=== PATIENT | male | born 1985 | race Two or more races ===

== ENCOUNTER 2017-08-19 00:23 | Emergency (ER) | payer OTHER ==
[~2017-08-19] VITALS: Ht 177.8 cm; Wt 69.4 kg
[2017-08-19] MEDS ORDERED: TOBREX5 ML OP (02:07)
[2017-08-19] MEDS ORDERED: LORATADINE10 MG PO (02:07)
[2017-08-19] MEDS ORDERED: FLONASE ALLERG9.9 ML NASAL (02:07)
== END 2017-08-19 02:14 | disposition home or self-care (01) ==
LOC: ER 00:23
DX: H10.13 Acute atopic conjunctivitis, bilateral (principal); J30.1 Allergic rhinitis due to pollen